=== PATIENT | female | born 1960 | race Caucasian/White ===

== ENCOUNTER 2018-09-17 11:04 | Emergency (ER) | payer BC, OTHER ==
--- NOTE | 2018-09-17 13:01 | UC ---
Throat Pain/Nasal Brett HPI - HPI Summary HPI Summary: Pt presents with c/o generalized malaise, fever, chills, nasal congestion, tender lymph nodes, ST, cough X 4 days. - History of Current Complaint Chief Complaint: UCGeneralIllness Stated Complaint: FEVER,SORE THROAT,COUGH Time Seen by Provider: 09/17/18 11:55 Hx Obtained From: Patient ?: No Onset/Duration: Sudden Onset Severity: Moderate Pain Intensity: 4 Cough: Productive Associated Signs & Symptoms: Positive: Dysphagia, Sinus Discomfort, Nasal Discharge, Fever - Epiglottits Risk Factors Epiglottis Risk Factors: Negative - Allergies/Home Medications Allergies/Adverse Reactions: Allergies Allergy/AdvReac Type Severity Reaction Status Date / Time clarithromycin [From Biaxin] Allergy See Comment Verified 09/17/18 11:35 Home Medications: Home Medications Aspirin TAB* [Aspirin 325 MG TAB*] 325 mg PO ONCE 09/17/18 [History Confirmed ] Citalopram TAB* [Celexa TAB*] 10 mg PO EVERY OTHER DAY 09/17/18 [History Confirmed 09/17/18] PMH/Surg Hx/FS Hx/Imm Hx Previously Healthy: Yes - Surgical History Surgical History: Yes Surgery Procedure, Year, and Place: BRAIN TUMOR REMOVED. LYMPH NODE REMOVAL - Family History Known Family History: Positive: Cardiac Disease - Social History Occupation: Employed Full-time Lives: With Family Alcohol Use: None Substance Use Type: None Smoking Status (MU): Never Smoked Tobacco Review of Systems All Other Systems Reviewed And Are Negative: Yes Constitutional: Positive: Fever, Chills, Fatigue Skin: Positive: Negative Eyes: Positive: Negative ENT: Positive: Sore Throat, Ear Ache, Sinus Congestion Respiratory: Positive: Cough Cardiovascular: Positive: Negative Gastrointestinal: Positive: Negative Genitourinary: Positive: Negative Motor: Positive: Negative Neurovascular: Positive: Negative Musculoskeletal: Positive: Myalgia Neurological: Positive: Negative Psychological: Positive: Negative Is Patient Immunocompromised?: No Physical Exam Triage Information Reviewed: Yes Appearance: Ill-Appearing Vital Signs: Initial Vital Signs Temp 98.0 F 09/17/18 11:29 Pulse 85 09/17/18 11:29 Resp 15 09/17/18 11:29 BP 121/80 09/17/18 11:29 Pulse Ox 99 09/17/18 11:29 Vital Signs Reviewed: Yes Eye Exam: Normal ENT: Positive: Pharyngeal erythema, Nasal congestion, Other - PND Dental Exam: Normal Neck: Positive: Enlarged Nodes @ - left submaxillary, tender with examination Respiratory Exam: Normal Cardiovascular Exam: Normal Musculoskeletal Exam: Normal Neurological Exam: Normal Psychological Exam: Normal Skin Exam: Normal Diagnostics - Laboratory Diagnostic Studies Completed/Ordered: rapid strep: negative Throat Pain/Nasal Course/Dx - Differential Dx/Diagnosis Differential Diagnosis/HQI/PQRI: Otitis Media, Pharyngitis, URI Provider Diagnosis: Pharyngitis Discharge - Sign-Out/Discharge Documenting (check all that apply): Patient Departure All imaging exams completed and their final reports reviewed: No Studies - Discharge Plan Condition: Stable Disposition: HOME Prescriptions: Amoxicillin PO (*) [Amoxicillin 500 MG CAP*] 500 mg PO Q12H #20 cap Guaifenesin/Pseudoephedrne HCl [Mucinex D ER 600-60 mg Tablet] 1 each PO Q12H # 14 tab.er.12h Patient Education Materials: Pharyngitis (ED) Referrals: Jeffrey Garber MD [Primary Care Provider] - If Needed - Billing Disposition and Condition Condition: STABLE Disposition: Home - Attestation Statements Provider Attestation: I was available for consult. This patient was seen by the THIAGO. The patient was not presented to, seen by, or examined by me. EK
== END 2018-09-17 13:10 | disposition home or self-care (01) ==
LOC: UCCORT 11:04
DX: J02.9 Acute pharyngitis, unspecified (principal); Z88.1 Allergy status to other antibiotic agents
CPT/HCPCS: 99202; G0463

== ENCOUNTER 2019-12-15 08:39 | Emergency (ER) | payer BC ==
[2019-12-15 09:04] VITALS: BP 114/69
--- NOTE | 2019-12-15 10:03 | UC ---
Respiratory Complaint HPI - HPI Summary HPI Summary: ONSET YESTERDAY OF SORE THROAT, POSTNASAL DRAINAGE AND COUGH. HAD SOME CHILLS AND OVERALL MALAISE. THOUGHT SHE SAW SOME "CHUNKY STUFF "IN HER THROAT. NO FEVER, N/V/D. SHE IS ALSO COMPLAINING OF ABOUT 6 MONTHS OF MUSCULOSKELETAL DISCOMFORT THAT SHE THINKS MAY BE RESIDUAL FROM HER LYME DISEASE. - History of Current Complaint Chief Complaint: UCGeneralIllness Stated Complaint: SORE THROAT Time Seen by Provider: 12/15/19 09:36 Hx Obtained From: Patient Onset/Duration: Gradual Onset, Lasting Days - 1 DAY Timing: Constant Severity Initially: Moderate Severity Currently: Moderate Pain Intensity: 3 Pain Scale Used: 0-10 Numeric Character: Cough: Nonproductive Aggravating Factors: Nothing Alleviating Factors: Nothing Associated Signs And Symptoms: Positive: URI, Nasal Congestion. Negative: Dyspnea, Fever, Wheezing - Allergies/Home Medications Allergies/Adverse Reactions: Allergies Allergy/AdvReac Type Severity Reaction Status Date / Time clarithromycin [From Biaxin] Allergy See Comment Verified 12/15/19 08:55 Home Medications: Home Medications Citalopram TAB* [Celexa TAB*] 40 mg PO DAILY 12/15/19 [History Confirmed ] Dm/Acetaminophen/Doxylamine [Vicks Nyquil Cold-Flu Liquid] 30 ml PO Q6H PRN [History Confirmed 12/15/19] PMH/Surg Hx/FS Hx/Imm Hx - Additional Past Medical History Additional PMH: BENIGN BRAIN TUMOR S/P RESECTION 2011 Psychological History: Anxiety, Depression - Surgical History Surgical History: Yes Surgery Procedure, Year, and Place: Benign Brain Tumorectomy, 2011, [place]; Submandibular Lymph Nodectomy, ~1979 - Family History Known Family History: Positive: Cardiac Disease - Social History Alcohol Use: None Substance Use Type: None Smoking Status (MU): Never Smoked Tobacco Review of Systems All Other Systems Reviewed And Are Negative: Yes Constitutional: Positive: Negative ENT: Positive: Sore Throat, Nasal Discharge Respiratory: Positive: Cough Cardiovascular: Positive: Negative Gastrointestinal: Positive: Negative Physical Exam Triage Information Reviewed: Yes Appearance: Well-Appearing, No Pain Distress, Well-Nourished Vital Signs: Initial Vital Signs Temp 97.7 F 12/15/19 08:51 Pulse 76 12/15/19 08:51 Resp 16 12/15/19 08:51 BP 114/69 12/15/19 08:51 Pulse Ox 98 12/15/19 08:51 Laboratory Tests 12/15/19 09:09 Group A Strep Rapid Negative Vital Signs Reviewed: Yes Eyes: Positive: Conjunctiva Clear ENT: Positive: Hearing grossly normal, Pharynx normal, TMs normal. Negative: Tonsillar swelling, Tonsillar exudate Neck: Positive: Supple, Nontender, No Lymphadenopathy Respiratory Exam: Normal Cardiovascular Exam: Normal Abdomen Description: Positive: Soft Musculoskeletal: Positive: No Edema Neurological: Positive: Alert Psychological: Positive: Age Appropriate Behavior Skin: Negative: Rashes Respiratory Course/Dx - Course Course Of Treatment: STREP NEGATIVE. PATIENT WITH LIKELY VIRAL UPPER RESPIRATORY SYMPTOMS THAT SHOULD RESOLVE ON THEIR OWN WITH TIME. ENCOURAGED REST, HYDRATION, OTC MEDS NEEDED. FOLLOW-UP IF NOT IMPROVING OVER THE NEXT 1-2 WEEKS. - Differential Dx/Diagnosis Provider Diagnosis: Upper respiratory infection Discharge ED - Sign-Out/Discharge Documenting (check all that apply): Patient Departure All imaging exams completed and their final reports reviewed: No Studies - Discharge Plan Condition: Stable Disposition: HOME Patient Education Materials: Upper Respiratory Infection (ED) Referrals: Jeffrey Garber MD [Primary Care Provider] - If Needed Additional Instructions: YOUR SYMPTOMS ARE LIKELY VIRALLY MEDIATED AND SHOULD RESOLVE ON THEIR OWN WITH TIME. NO INDICATION FOR ANTIBIOTICS AT PRESENT. REST, HYDRATE, OTC MEDS NEEDED. SEEK FOLLOW-UP IF YOU ARE NOT IMPROVING OVER THE NEXT 1-2 WEEKS. USE OTC AFRIN FOR NASAL CONGESTION IF NEEDED. 2 SPRAYS IN EACH NOSTRIL TWICE DAILY NEEDED. DO NOT USE FOR MORE THAN 3-4 DAYS IN A ROW TO PREVENT DEVELOPING REBOUND CONGESTION. IF YOU ONLY USE IT ONCE DAILY YOU CAN EXTEND TO ABOUT 5 DAYS. - Billing Disposition and Condition Condition: STABLE Disposition: Home
== END 2019-12-15 10:11 | disposition home or self-care (01) ==
LOC: UCCORT 08:39
DX: J06.9 Acute upper respiratory infection, unspecified (principal); Z88.1 Allergy status to other antibiotic agents; F32.9 Major depressive disorder, single episode, unspecified; Z79.899 Other long term (current) drug therapy
CPT/HCPCS: 87651; 99212; G0463